=== PATIENT | female | born 1995 | race Caucasian/White ===

== ENCOUNTER 2022-09-11 15:09 | Outpatient (CLI) | payer OTHER, SELFPAY ==
[2022-09-11 18:55] LABS: Hematocrit 44.1 % (37.0-47.0); Mean Corpuscular HGB Conc 31.7 g/dl (32-36); Mean Corpuscular Hemoglobin 29.5 pg (26-34); Platelet Count Result 391 k/mm3 (150-375); Red Blood Count 4.74 M/mm3 (4.2-5.4); Red Cell Distribution Width 13.6 % (11.5-14.5); White Blood Count 9.4 K/mm3 (4.5-10.0)
[2022-09-11 19:10] LABS: Alanine Aminotransferase 22 U/L (6-35); Albumin Level 5.1 g/dL (3.5-5.1); Alkaline Phosphatase 117 U/L (38-126); Anion Gap 12 mmol/L (8-16); Aspartate Amino Transferase 36 U/L (14-36); Bilirubin,Total 0.6 mg/dL (0.2-1.3); Blood Urea Nitrogen 11 mg/dL (7-17); Calcium 9.4 mg/dL (8.4-10.2); Carbon Dioxide 28 mmol/L (22-30); Chloride 103 mmol/L (98-107); Estimated Glomerular Filt Rate > 60; Glucose 89 mg/dL (65-110); Potassium 3.5 mmol/L (3.4-5.0); Sodium 143 mmol/L (137-145)
[2022-09-11 20:50] LABS: Hemoglobin A1C 5.4 % (<5.7)
[2022-09-11 21:51] LABS: Free T4 Free Thyroxine 1.14 ng/mL (0.78-2.19)
[2022-09-14 12:41] LABS: Insulin Level Total 12.3 uIU/mL (<=19.6)
[2022-09-15 05:51] LABS: FSH 5.7 mIU/mL (***); LH 13.9 mIU/mL (***); Progesterone 0.8 ng/mL (***); Prolactin 2.5 ng/mL (***)
[2022-09-19 13:43] LABS: Testosterone Total 97 ng/dL (2-45)
== END 2022-09-11 15:10 | disposition home or self-care (01) ==
PROVIDERS: PCP Family Medicine; Visit Provider Obstetrics & Gynecology
DX: E28.2 Polycystic ovarian syndrome (principal)
CPT/HCPCS: 36415; 80053; 83001; 83002; 83036; 83498; 83525; 84144; 84146; 84402; 84403; 84439; 84443; 85027

== ENCOUNTER 2022-10-11 16:15 | Outpatient (CLI) | payer OTHER, SELFPAY ==
--- NOTE | ~2022-10-11 | XR_ITS ---
XR hip RT min 2V DATE: 10/11/2022 16:30 INDICATION: Right hip pain for one year. No known injury. TECHNIQUE: AP and lateral views COMPARISON: None FINDINGS: No fracture or dislocation or bone destruction. No evidence of avascular necrosis. Right hi p joint space is well preserved. The right sacroiliac joint appears normal. IMPRESSION: Negative right hip Reviewed, dictated and finalized at location B. GER UNION IMPRESSION: Negative right hip
== END 2022-10-11 16:16 | disposition home or self-care (01) ==
LOC: ANHBWCIMG 16:22
PROVIDERS: PCP Family Medicine; Visit Provider Family Medicine
DX: M89.8X8 Other specified disorders of bone, other site (principal)
CPT/HCPCS: 73502

== ENCOUNTER 2022-11-29 08:55 | Outpatient (CLI) | payer OTHER, SELFPAY ==
[2022-11-30 13:09] LABS: Rapid Plasma Reagin Non-Reactive (NonReactive)
[2022-12-02 15:24] LABS: HIV 1 2 Ag Ab 4th Gen w Rflxs Nonreactive (Nonreactive)
== END 2022-11-29 08:56 | disposition home or self-care (01) ==
PROVIDERS: PCP Family Medicine; Visit Provider Family Medicine
DX: Z20.2 Contact with and (suspected) exposure to infections with a predominantly sexual mode of transmission (principal)
CPT/HCPCS: 36415; 86592; 87389; 87491; 87591

== ENCOUNTER 2022-12-13 14:34 | Outpatient (CLI) | payer OTHER, SELFPAY ==
--- NOTE | ~2022-12-13 | XR_ITS ---
XR ankle LT min 3V DATE: 12/13/2022 14:44 INDICATION: Left ankle pain TECHNIQUE: 4 views COMPARISON: None FINDINGS: Moderate lateral soft tissue swelling. No fracture or dislocation of the ankle or disruptio n of the ankle mortise. No periosteal reaction or bone destruction. IMPRESSION: Lateral soft tissue swelling Reviewed, dictated and finalized at location B. E ASSESSED PROPERTIES DIRECTOR
== END 2022-12-13 14:35 | disposition home or self-care (01) ==
LOC: ANHBWCIMG 14:36
PROVIDERS: PCP Family Medicine; Visit Provider Family Medicine
DX: M25.572 Pain in left ankle and joints of left foot (principal); M79.89 Other specified soft tissue disorders
CPT/HCPCS: 73610

== ENCOUNTER 2024-08-06 11:25 | Emergency (ER) | payer SELFPAY ==
[2024-08-06 11:40] VITALS: BP 128/82; PULSE 83; RESP 16; TEMP 36.6; O2SAT 100
[2024-08-06 12:30] LABS: EDSTREPNEGPOS1 Positive (Negative)
--- NOTE | 2024-08-06 12:39 | ED_ITS ---
HPI - URI/Sore Throat General Chief Complaint: Upper Respiratory Infection Stated Complaint: Congestion/Nausea/Fever Time Seen by Provider: 08/06/24 12:22 Source: patient, RN notes reviewed and old records reviewed Mode of arrival: ambulatory Limitations: no limitations History of Present Illness HPI Narrative: 29-year-old female presents to [facility] with complaints sore throat, painful neck glands,cough, stuffy nose and headache with nasal congestion,ear pain, and nausea since Sunday. Patient has been taking Ibuprofen for her symptom. Denies any known exposure to sick contacts. MD elicited complaint: cough, sore throat, rhinorrhea, nasal congestion and other (headache) Onset (ago): day(s) (4 days) Severity: severe Pain scale (0-10): 7 Able to tolerate fluids by mouth: Yes Treatments prior to arrival: ibuprofen Related Data Home Medications Medication Instructions Recorded Confirmed buspirone 10 mg tablet 10 mg PO BID 08/06/24 08/06/24 hydroxyzine HCl 25 mg tablet 25 mg PO BID PRN Anxiety 08/06/24 08/06/24 ziprasidone HCl 40 mg capsule 40 mg PO BID 08/06/24 08/06/24 (Tanvi) Allergies Allergy/AdvReac Type Severity Reaction Status Date / Time latex Allergy Mild Rash Verified 08/06/24 12:09 Review of Systems Review of Systems: CONSTITUTIONAL: Reports malaise, chills, sweats, or fever. fatigue EYES: Denies visual changes, redness, or discharge. ENT: Reports rhinorrhea, congestion, sinus pain,bilateral otalgia and positive for sore throat. CARDIOVASCULAR: Denies chest pain, palpitations, or edema. RESPIRATORY: Reports cough.? Denies dyspnea. GASTROINTESTINAL: Denies abdominal pain, states nausea,no vomiting,no diarrhea SKIN: Denies rash or itching. MUSCULOSKELETAL: Denies myalgia. NEUROLOGIC: Positive for headache. All systems reviewed & are unremarkable except as noted in HPI and below PMFSH Past Medical History Medical History Allergies Anxiety Depression Mood disorder PCOS (polycystic ovarian syndrome) Surgical History Surgical History Tonsil and adenoid disease, chronic Family History Family History Grandparent Diabetes mellitus Family history of cardiovascular disease Anxiety Depression Father Family history of elevated blood lipids Mother Depression Anxiety Other Hypertension Social History Social History (Updated 08/09/24 @ 11:46 by Marilyn Patel NP) Smoking status: Current every day smoker Tobacco type: e-cigarettes/vaping Second hand tobacco smoke exposure: Yes Alcohol intake: current Drinks per week: 10 Substance use: current Substance use type: marijuana Other substance usage details: smokes marijuana daily, primarily at night to help with sleep Living arrangements: with family Additional living arrangements comments: , is [employer] Occupation/Education: occupation 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 There is no relevant family history pertinent to the presenting complaint Exam Narrative: GENERAL: Well-appearing, well-nourished, and in no acute distress. HEAD: Normocephalic EYES: PERRLA, conjunctivae clear ENT: Nares clear, turbinates edematous and erythematous, clear discharge. Mucous membranes moist. TM pearly ortega with dull light reflex bilaterally; no tragal tenderness. Oropharynx erythematous without lesions. Tonsils red enlarged and without exudate, no drooling, no hoarseness, no trismus, uvula midline. some post nasal drainage NECK: Supple.positive for lymphadenopathy CHEST: Clear to auscultation, breath sounds equal. No wheezing, rhonchi, rales, or stridor. No respiratory distress, speaks in full sentences. HEART: Regular rate and rhythm. No murmur heard. SKIN: Warm, dry, no rash. NEURO: Alert and oriented x3. PSYCH: Normal mood and affect Course Course Emergency Course: Patient is aware of diagnosis, understands and agrees to treatment plan.? Anticipatory guidance given.? Patient agrees to follow-up as directed and is aware of reasons to seek care at the emergency department. Portions of this record may have been created with voice recognition software Level of Care: Express Care Visit Vital Signs Vital signs: Vital Signs Temperature 36.6 C 08/06/24 11:40 Pulse Rate 83 08/06/24 11:40 Respiratory Rate 16 08/06/24 11:40 Blood Pressure 128/82 08/06/24 11:40 Pulse Oximetry 100 08/06/24 11:40 Oxygen Delivery Room Air 08/06/24 11:40 Temperature 36.6 C 08/06/24 11:40 Pulse Rate 83 08/06/24 11:40 Respiratory Rate 16 08/06/24 11:40 Blood Pressure 128/82 08/06/24 11:40 Pulse Oximetry 100 08/06/24 11:40 Oxygen Delivery Room Air 08/06/24 11:40 Reviewed MDM - URI/Sore Throat MDM Narrative Medical decision making narrative: Differential diagnosis considered: Warren virus, strep pharyngitis, allergic rhinitis, upper respiratory tract infection, sinusitis, rhinosinusitis, nasopharyngitis. viral pharyngitis, otitis media, otitis externa, pneumonia, bronchitis, viral cough syndrome, viral syndrome, and influenza.? Exam findings show no acute concerns or changes; patient is non-toxic appearing and is in no distress.? Patient is appropriate for outpatient treatment and follow-up. Differential Diagnosis Differential diagnosis: Likely upper respiratory infection, sinusitis, viral infection, pharyngitis and other (strep pharyngitis) Medical Records Attestation: I reviewed the patient's medical records. Lab Data Attestation: I reviewed the patient's lab results. Lab results narrative: strep screen positive Labs: Lab Results 08/06/24 Range/Units 12:28 POC Grp A Strep Screen Positive (Negative) Critical Care Time Critical Care Time Critical Care Time: No Discharge Plan Discharge Clinical Impression: Acute streptococcal pharyngitis Patient Disposition: Home, Self-Care Condition: Stable Instructions: Antibiotic Form, Strep Throat (ED) Additional Instructions: You tested positive for Group A strep . Take the entire course of antibiotics. Throw away your current toothbrush and begin using a new toothbrush in 48 hours in order to prevent re-infection. Sanitize all reusable water bottles . Do not share items with others. Salt water gargles may alleviate some of the throat discomfort. You can take tylenol or ibuprofen per the package instructions for pain/fever. If your symptoms persist, change or worsen significantly before you can contact your personal physician then please, without delay, go to the emergency department for further evaluation. Follow-up with PCP in 7-10 days or sooner if needed Follow up with PCP soon in regards to your blood pressure which is elevated above threshold for referral. Blood pressure above 120/80 may indicate pre- hypertension. Minimal elevation 128/82 Prescriptions: New amoxicillin 875 mg tablet 875 mg PO Q12H Qty: 20 0RF No Action buspirone 10 mg tablet 10 mg PO BID hydroxyzine HCl 25 mg Tablet 25 mg PO BID PRN (Reason: Anxiety) ziprasidone HCl [Geodon] 40 mg Capsule 40 mg PO BID Rx Instructions: give with food (meal/snack) Follow-up/Referrals: PHYSICIAN,GENERAL COUNSEL [Primary Care Provider] - Stand Alone Forms: Work/School Release IP Time of Disposition: 12:43 Quality [place] Coma Scale Eyes: Open Verbal: Oriented and Alert Motor: Follows Commands [place] Coma Total Score: 15
== END 2024-08-06 12:45 | disposition home or self-care (01) ==
PROVIDERS: Emergency Provider Registered Nurse
DX: J02.0 Streptococcal pharyngitis (principal); F17.290 Nicotine dependence, other tobacco product, uncomplicated; F12.90 Cannabis use, unspecified, uncomplicated
CPT/HCPCS: 87880; 99213; G0463

== ENCOUNTER 2025-05-07 16:13 | Outpatient (CLI) | payer MEDICAID, SELFPAY ==
--- OUTSIDE RECORDS SUMMARY | 2025-05-07 16:15 | XMS_ITS | Clinical Summary ---
Author Organization [facility] Address [address] [place] [address] Care Team Providers Care Water Quality Analyst Name Role Phone Unavailable Primary Care Provider Unavailabl e Source Comments [facility],non-owned Affiliates and Associated Physician Practices is amultiple site organization consisting of ambulatory clinics and hospital sitesin [place], [place], [place] and [place]. This disclosure is being madepursuant to the Care Everywhere program and may not contain all information available regarding this patient. Last updated [address] [facility] Allergies Active Allergy Reactions Criticality Noted Date Comments Latex Rash Medium 09/19/2017 Medications * Be aware that medications may not be up to date on this document. Alwaysverify current medications with the patient. No known medications Active Problems No known active problems Social History Tobacco Use Types Packs/Day Years Used Date Smoking Tobacco: Never Smokeless Tobacco: Never Comments No Sex and Gender Information Value Date Recorded Sex Assigned at Not on file Legal Sex Female 8:[address] Gender Identity Not on file Sexual Orientation Not on file Last Filed Vital Signs Vital Sign Reading Time Taken Comments Blood Pressure 108/70 09/19/2017 11:[address] Pulse 112 09/19/2017 11:[address] Temperature 38 C (100.4 F) 09/19/2017 11:[address] Respiratory Rate 17 09/19/2017 11:[address] Oxygen Saturation 96% 09/19/2017 11:[address] Inhaled Oxygen Concentration - - Weight 88.5 kg (195 lb) 09/19/2017 11:[address] Height 170.2 cm (5' 7) 09/19/2017 11:[address] Body Mass Index 30.54 09/19/2017 11:[address] Plan of Treatment Health Maintenance Due Date Last Done Comments HIV SCREENING 01/10/2012 HEPATITIS C SCREENING 01/05/2015 DTAP/TDAP/TD VACCINES (1 - Tdap) 01/10/2016 HEPATITIS B VACCINE (1 of 3 - 19+ 3-dose series) 01/10/2016 HPV VACCINE (1 - 3-dose SCDM series) 01/10/2024 COVID-19 VACCINE (1 - 2023-2 5 season) 2024 DEPRESSION SCREENING 10/08/2024 INFLUENZA VACCINE (#1) 2025 ZOSTER VACCINE (1 of 2) 2047 HIB VACCINE Aged Out No longer eligi ble based on patient's age to complete this topic MENINGOCOCCAL (Group B) VACC INE SHARED DECISION-MAKING Aged Out No longer eligibl e based on patient's age to complete this topic MENINGOCOCCAL GROUPS A/C/Y/W VACCINE Aged Out No longer eligible b ased on patient's age to complete this topic PNEUMOCOCCAL VACCINE Aged Out No long er eligible based on patient's age to complete this topic Insurance [employer]
--- OUTSIDE RECORDS SUMMARY | 2025-05-07 16:16 | XMS_ITS | Clinical Summary ---
Author Organization [facility] Address [address] [place] [id number] Phone Care Team Providers Care Policy Director Name Role Phone Provider, None Primary Care Provider Unavailabl e Aubree Giles MD Unavailable Karen Kim MD Unavailable [phone] Allergies Active Allergy Reactions Criticality Noted Date Comments Amphetamine-Dextroamp hetamine Other (see Comments) 03/20/2019 Exacerbates GLRD Latex Rash Medium 09/19/2017 Reaction: rash, , Latex Itching High 06/07/2023 Medications lamoTRIgine (LAMICTAL) 150 MG Tablet 150 mg. 7 Active metFORMIN (GLUCOPHAGE) 500 MG Tablet TAKE ONE TABLET BY MOUTH TWICE DAILY WITH BREAKFAST AND SUPPER 9 Active amphetamine-dext roamphetamine (ADDERALL) 5 MG Tablet Take 5 mg by mouth. Active buPROPion (WELLBUTRIN) 150 MG XL tablet Take 150 mg by mouth. Active pantoprazole (PROTONIX) 40 MG Tablet Delayed ResponseIndicati ons:Laryngophary ngeal reflux,PNAR (perennial non-allergic rhinitis) 1 tab po QD 30-60' AC largest meal 90 Tab 1 9 Active Additional Information Patient not taking.Reported on 07/02/2023 guaifenesin CR (MUCINEX MAXIMUM STRENGTH) 1200 MG TABLET SR 12 HRIndications:PN AR (perennial non-allergic rhinitis) 1 tablet by mouth twice a day if needed for thick mucus. Take with a full glass of water 28 Tab 9 Active Additional Information Patient not taking.Reported on 07/02/2023 Lumateperone Tosylate (Caplyta) 42 MG Capsule Take 1 Capsule by mouth nightly. Active Vraylar 3 MG Capsule 3 Active ondansetron (ZOFRAN-ODT) 4 MG TABLET DISPERSIBLEIndic ations:Nausea and vomiting, unspecified vomiting type,Gastroenter itis Take 1 Tablet by mouth every 8 hours as needed for Nausea - 1st line. 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 Laryngopharyngeal reflux 03/20/2019 TMJ (temporomandibular joint syndrome) 9 Complicated headache syndromes 03/20/2019 Social History Tobacco Use Types Packs/Day Years Used Date Smoking Tobacco: Never Smokeless Tobacco: Never Tobacco Cessation:Counseling Given: Not Answered Alcohol Use Standard Drinks/Week Comments Not Currently 0 (1 standard drink = 0.6 oz pur e alcohol) social Sexually Active Control Partners Comments Yes Male Comments No Sex and Gender Information Value Date Recorded Sex Assigned at Not on file Legal Sex Female 11:31 PM CDT Gender Identity Not on file Sexual Orientation Not on file Last Filed Vital Signs Vital Sign Reading Time Taken Comments Blood Pressure 120/80 07/02/2023 3:55 PM CDT Pulse 109 07/02/2023 3:55 PM CDT Temperature 37.1 C (98.8 F) 07/02/2023 3:55 PM CDT Respiratory Rate 18 07/02/2023 3:55 PM CDT Oxygen Saturation 98% 07/02/2023 3:55 PM CDT Inhaled Oxygen Concentration - - Weight 106.1 kg (234 lb) 07/02/2023 3:55 PM CDT Height 167.6 cm (5' 6) 03/20/2019 3:45 PM CDT Body Mass Index 37.77 03/20/2019 3:45 PM CDT Plan of Treatment Health Maintenance Due Date Last Done Comments Hepatitis C Virus (HCV) Screening 1997 Human Papillomavirus (HPV) Immunization (3 - 3-dose series) 12/25/2012 08/28/2012, 06/27/2012 Pap Smear 2018 SARS-COV-2 Immunization ( season) 2024 12/23/2021, 06/17/2021 Influenza Immunization (#1) 06/08/202508/09, 07/22/2010, 07/22/2010, Additional history exists Respiratory Syncytial Virus (RSV) Immunization (Adult) (1 - 1-dose 75+ series) 01/10/2072 Hepatitis B Immunization Completed 997, 1997, 1997 DTaP/Tdap/Td Immunization Discontinued 2018, 07/21/2008, 12/13/2001, Additional history exists TdaP Immunization Completed 04/22/2019, 07/21/2008 Meningococcal Immunization (ACWY) Aged Out No longer eligible based on patient's age to complete this topic Pneumococcal Immunization Combined Aged Out No longer eligible based on patient's age to complete this topic Rotavirus Immunization Aged Out No lo nger eligible based on patient's age to complete this topic [place] [id number] Care Teams Policy Director Relationship Specialty Start Date End Date Provider, None [place] PCP - General 12/20/20 Aubree Giles MD [address] [place] [address] Family Medicine 12/20/20 Karen Kim MD [address] [place] [id number] Psych[facility] 03/20/19
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
--- OUTSIDE RECORDS SUMMARY | 2025-05-07 16:16 | XMS_ITS | Clinical Summary ---
Author Organization [facility] Medical Office Building B Address [address] [place] [address] Care Team Providers Care Sales Associate Cashier Name Role Phone No, Physician Primary Care Provider [phone] Allergies Active Allergy Reactions Criticality Noted Date [...] 09/22/2022 Assessment & Plan (09/22/2022 11:57 AM PRODUCTION POTTER): Ms. Villanueva is a 27yo F with [...] 12/13/2001,01/11/1998 OPV 04/12/1998 Tdap 04/22/2019,07/21/2008 Varicella 01/11/1998 Surgical History Surgery Date Site/Laterality Comments OTHER SURGICAL HISTORY T&A: 10/20 [place] OTHER SURGICAL HISTORY Dehydration 2ndary to AGE: Admit TONSILLECTOMY tonsillectomy Medical History Medical History Date Comments Hx Other Medical 2012 T&A Hx Other Medical 2001 Dehydration 2nd sujit to AGE Major depressive disorder, r ecurrent, moderate (HCC) Major depressive disorder, r ecurrent episode, moderate with anxious distress - (Added by TW Conv) Family History Medical History Relation Name Comments Hyperlipidemia Father Hyperlipidemi a; Heart disease Maternal Grandfather Heart disease; Hypertension Maternal Grandfather Hyperte nsion; Hypertension Maternal Grandmother Hyperte nsion; Other Other 1 No family histo ry of Diabetes mellitus; Other Other 2 No family histo ry of Seizure disorder; Other Other 3 No family histo ry of Sudden <50; Relation Name Status Comments Father Maternal Grandfather Maternal Grandmother Other 1 Other 2 Other 3 Social History Tobacco Use Types Packs/Day Years [...] often do you attend chur ch or buddhism services? Never 09/21/2022 Do you belong to any clubs o r organizations such as faith groups, unions, fraternal or athletic groups, or [...] place to sleep or slept in a mcfp (including now)? No 09/21/2022 Personal Safety Answer [...] on file Legal Sex Female 2:25 AM PRODUCTION POTTER Gender Identity Not on file Sexual Orientation Not on file Obstetrics History Para Term AB IAB SAB Ectopic Multiple Livin g Live Births 0 0 0 0 0 0 0 0 0 0 0 Last Filed Vital Signs Vital Sign Reading [...] 01/31/2025 5:55 PM CDT Plan of Treatment Health Maintenance Due Date Last Done Comments Hepatitis C Screening 1997 Varicella Vaccines (2 of 2 - 2-dose childhood series) 2001 01/11/1998 HPV Vaccines (3 - 3-dose series) 12/25/2012 08/28/2012, 08/28/2012, 06/27/2012 Cervical Cancer Screening 01/19/20232021, 11/12/2020, 06/12/2018 Depression Screening 01/19/2023 01/19/2022, 06/15/2021, 11/12/2020, Additional history exists Regular Well Visit/Exam 18-64 01/19/2023 01/19/2022, 11/12/2020, 06/16/2019, Additional history exists Influenza Vaccine (#1) 2025 2, 08/28/2012, 07/22/2010, Additional history exists DTaP/Tdap/Td Vaccine (8 - Td or Tdap) 04/22/2029 04/22/2019, 07/21/2008, 12/13/2001, Additional history exists Hepatitis B Screening Completed 1997 , 1997, 1997 Pneumococcal vaccine <65 Aged Out No longer eligible based on patient's age to complete this topic Procedures Procedure Name Priority Date/Time Associated Diagnosis [...] Major Comment:INFORMATION NOT PROV IDED Prev. Bx Miranda Major Comment:INFORMATION NOT PROV IDED SOURCE: Miranda [...] has been evaluated with computer assisted technology. Gripper Installer Pascual Varela Comment: BES, CT(ASCP) CT screening location: [place] [address] [place] [address] Comment Miranda Major Comment: EXPLANATORY NOTE: The [...] 7 AM CDT 01/20/2022 1:34 AM CDT us Ariana Saenz BOW REPAIRER CUSTOM LAB CYTOLOGY ORDERABLES F inal Result [facility] [address] [place] [address] from Last 3 Months or Most Recently Relevant to Health Maintenance Insurance [employer] [facility] CHOICE PLUS [facility] HMO/PPO Address: [address] [address] [place] [address] Advance Directives For more information, please contact: [phone] * Full Code (Latest Code Status on File) Date Activated Date Inactivated Comments 09/21/2022 5:51 PM 09/23/2022 3:57 PM * Full Code Date Activated Date Inactivated Comments 06/26/2019 8:17 AM 06/26/2019 2:03 PM * Full Code Date Activated Date Inactivated Comments 06/26/2019 8:17 AM 06/26/2019 8:17 AM Care Teams Sales Associate Cashier Relationship Specialty Start Date End Date No, Physician PCP - General 04/05/24
[2025-05-07 18:58] LABS: Hematocrit 40.7 % (37.0-47.0); Hemoglobin 12.0 g/dL (12.0-15.0); Mean Corpuscular HGB Conc 29.5 g/dl (32-36); Mean Corpuscular Hemoglobin 26.3 pg (26-34); Mean Corpuscular Volume 89.1 fl (80-100); Platelet Count Result 405 k/mm3 (150-375); Red Blood Count 4.57 M/mm3 (4.2-5.4); White Blood Count 11.5 K/mm3 (4.5-10.0)
[2025-05-07 19:26] LABS: Alanine Aminotransferase 24 U/L (6-35); Albumin Level 4.4 g/dL (3.5-5.1); Alkaline Phosphatase 80 U/L (38-126); Anion Gap 9 mmol/L (4-12); Aspartate Amino Transferase 33 U/L (14-36); Bilirubin,Total 0.4 mg/dL (0.2-1.3); Blood Urea Nitrogen 7 mg/dL (7-17); Calcium 9.6 mg/dL (8.4-10.2); Carbon Dioxide 26 mmol/L (22-30); Chloride 103 mmol/L (98-107); Cholesterol 234 mg/dL (0-200); Estimated Glomerular Filt Rate > 60; Glucose 90 mg/dL (65-110); HDL Direct 62 mg/dL; Potassium 4.1 mmol/L (3.4-5.0); Sodium 138 mmol/L (137-145); Total Protein 8.2 g/dL (6.3-8.2); Triglycerides 93 mg/dL (<150)
[2025-05-07 19:45] LABS: Free T4 Free Thyroxine 1.16 ng/dL (0.78-2.19)
[2025-05-07 19:56] LABS: Hemoglobin A1C 5.6 % (<5.7)
[2025-05-07 19:58] LABS: Thyroid Stimulating Hormone 1.520 uIU/mL (0.465-4.680)
== END 2025-05-07 16:14 | disposition home or self-care (01) ==
LOC: ANHBWCLAB 16:14
PROVIDERS: PCP Nurse Practitioner Adult Health; Visit Provider Nurse Practitioner Adult Health
DX: Z00.00 Encounter for general adult medical examination without abnormal findings (principal); E66.9 Obesity, unspecified; E28.2 Polycystic ovarian syndrome
CPT/HCPCS: 36415; 80053; 80061; 83036; 84439; 84443; 85027; 86376

== ENCOUNTER 2025-05-21 10:13 | Outpatient (CLI) | payer MEDICAID, SELFPAY ==
--- OUTSIDE RECORDS SUMMARY | 2025-05-21 10:27 | XMS_ITS | Clinical Summary ---
Author Organization [facility] Address [address] [place] [address] Care Team Providers Care Recreation Program Specialist Name Role Phone Unavailable Primary Care Provider Unavailabl e Source Comments [facility],non-owned Affiliates and Associated Physician Practices is amultiple site organization consisting of ambulatory clinics and hospital sitesin [place], [place], [place] and [place]. This disclosure is being madepursuant to the Care Everywhere program and may not contain all information available regarding this patient. Last updated 18.[facility] Allergies Active Allergy Reactions Criticality Noted Date [...] on file Legal Sex Female 8:25 AM WIRE BRUSH MAKER Gender Identity Not on file Sexual Orientation Not on file Last Filed Vital Signs Vital Sign Reading Time Taken Comments Blood Pressure 108/70 09/19/2017 11:42 AM WIRE BRUSH MAKER Pulse 112 09/19/2017 11:42 AM WIRE BRUSH MAKER Temperature 38 C (100.4 F) 09/19/2017 11:42 AM WIRE BRUSH MAKER Respiratory Rate 17 09/19/2017 11:42 AM WIRE BRUSH MAKER Oxygen Saturation 96% 09/19/2017 11:42 AM WIRE BRUSH MAKER Inhaled Oxygen Concentration - - Weight 88.5 kg (195 lb) 09/19/2017 11:42 AM WIRE BRUSH MAKER Height 170.2 cm (5' 7) 09/19/2017 11:42 AM WIRE BRUSH MAKER Body Mass Index 30.54 09/19/2017 11:42 AM WIRE BRUSH MAKER Plan of Treatment Health Maintenance Due Date [...]
--- OUTSIDE RECORDS SUMMARY | 2025-05-21 10:28 | XMS_ITS | Clinical Summary ---
Author Organization [facility] Medical Office Building B Address [address] [place] [address] Care Team Providers Care Case Hardener Name Role Phone No, Physician Primary Care Provider [phone] Allergies Active Allergy Reactions Criticality Noted Date [...] 09/22/2022 Assessment & Plan (09/22/2022 11:57 AM METAL PICKLING EQUIPMENT OPERATOR): Ms. Villanueva is a 27yo F with [...] oz pur e alcohol) Social Connection and Isolation Panel Answer Date Recorded In a typical week, how many times do you talk on the phone with family, friends, or neighbors? More than three times a week 09/21/2022 How often do you get togethe r with friends or relatives? More than three times a week 09/21/2022 How often do you attend chur ch or latter day services? Never 09/21/2022 Do you belong to any clubs o r organizations such as hoahaoism groups, unions, fraternal or athletic groups, or [...] place to sleep or slept in a residential (including now)? No 09/21/2022 Personal Safety Answer [...] on file Legal Sex Female 2:25 AM METAL PICKLING EQUIPMENT OPERATOR Gender Identity Not on file Sexual Orientation [...] (2 of 2 - 2-dose childhood series) 01/10/2002 01/11/1998 HPV Vaccines (3 - 3-dose series) [...] has been evaluated with computer assisted technology. Irrigation Foreman [facility] st Breanna Major Comment: BES, CT(ASCP) CT screening location: [place] [address] [place] [address] Comment Miranda Major Comment: EXPLANATORY NOTE: The [...] CDT 01/20/2022 1:34 AM CDT Ariana Saenz DIESEL MECHANIC APPRENTICE LAB CYTOLOGY ORDERABLES F inal Result [email or web address] [address] [place] [address] from Last 3 Months or Most Recently Relevant to Health Maintenance Insurance [employer] [facility] CHOICE PLUS Advance Directives For more information, please contact: [phone] * Full Code (Latest Code Status on File) Date Activated Date Inactivated Comments 09/21/2022 5:51 PM 09/23/2022 3:57 PM * Full Code Date Activated Date Inactivated Comments 06/26/2019 8:17 AM 06/26/2019 2:03 PM * Full Code Date Activated Date Inactivated Comments 06/26/2019 8:17 AM 06/26/2019 8:17 AM Care Teams Case Hardener Relationship Specialty Start Date End Date No, Physician PCP - General 04/05/24
--- OUTSIDE RECORDS SUMMARY | 2025-05-21 10:28 | XMS_ITS | Clinical Summary ---
Author Organization [facility] Address [address] [place] [phone] Phone Care Team Providers Care Trust Advisor Name Role Phone Provider, None Primary Care Provider Unavailabl e Aubree Giles MD Unavailable Karen Kim MD Unavailable Allergies Active Allergy Reactions Criticality Noted Date [...] [place] Care Teams Trust Advisor Relationship Specialty Start Date End Date Provider, None [place] PCP - General 12/20/20 Aubree Giles MD [address] [place] [address] Family Medicine 12/20/20 Karen Kim MD [address] [place] [id number] Psychiatrist Child & Adolescent Psychiatry 03/20/19
[2025-05-21 19:04] LABS: Hematocrit 42.8 % (37.0-47.0); Hemoglobin 12.9 g/dL (12.0-15.0); Immature Granulocyte Percent A 0.4 % (0-0.5); Lymphocytes Absolute Auto 2.38 K/mm3 (0.9-3.2); Mean Corpuscular HGB Conc 30.1 g/dl (32-36); Mean Corpuscular Hemoglobin 27.2 pg (26-34); Mean Corpuscular Volume 90.1 fl (80-100); Nucleated Red Blood Cells Absolute Auto 0.000 K/mm3 (0.0-0.012); Nucleated Red Blood Cells Perc 0.0 % (0.0-0.2); Platelet Count Result 406 k/mm3 (150-375); Red Blood Count 4.75 M/mm3 (4.2-5.4); White Blood Count 8.1 K/mm3 (4.5-10.0)
== END 2025-05-21 10:14 | disposition home or self-care (01) ==
LOC: ANHBWCLAB 10:14
PROVIDERS: PCP Nurse Practitioner Adult Health; Visit Provider Nurse Practitioner Adult Health
DX: D72.829 Elevated white blood cell count, unspecified (principal)
CPT/HCPCS: 36415; 85025